=== PATIENT | female | born 1980 | race African-American/Black ===

== ENCOUNTER 2020-11-30 16:25 | Inpatient (IN) | payer MEDICAID, OTHER ==
[~2020-11-30] VITALS: Ht 165.1 cm; Wt 74.8 kg
[2020-11-30] MEDS ORDERED: ACETAMINOPHEN 325MG TABLET PO STA (17:15)
[2020-11-30] MEDS ORDERED: VISCOUS LIDOCAINE 2% 15 ML UDC PO STA (17:15)
[2020-11-30] MEDS ORDERED: MAGNESIUM/ALUMINUM HYDROXIDE/SIMETHICONE 30ML UDC PO STA (17:15)
[2020-11-30] MEDS ORDERED: SODIUM CHLORIDE 0.9% 1,000 ML IV ONE (17:15)
[2020-11-30 18:02] LABS: HEMATOCRIT. 39.6 % (36.0-48.0); HEMOGLOBIN. 13.1 g/dL (12.0-16.0); MEAN CORPUSCULAR HEMOGLOBIN 29.1 pg (28.0-32.0); MEAN PLATELET VOLUME 8.8 fl (7.4-10.4); PLATELET 343 x1000/uL (130-400); RED CELL DISTRIBUTION WIDTH 14.3 % (11.6-14.6)
[2020-11-30 18:07] LABS: CHLORIDE 103 mEq/L (98-107)
[2020-11-30 18:12] LABS: ETHANOL BLOOD < 10 mg/dL
[2020-11-30 18:18] LABS: PLATELET ESTIMATE NORMAL
[2020-11-30 18:38] LABS: CLARITY URINE CLOUDY (CLEAR); KETONES URINE 2+ (NEGATIVE); LEUKOCYTE ESTERASE URINE NEGATIVE (NEGATIVE); NITRITE URINE NEGATIVE (NEGATIVE); OCCULT BLOOD URINE 1+ (NEGATIVE); PROTEIN URINE 2+ (NEGATIVE); SPECIFIC GRAVITY URINE 1.027 (1.005-1.030); UROBILINOGEN URINE 0.2 E.U./dL (0.2-1.0)
[2020-11-30 18:41] LABS: COLOR URINE DARK YELLOW (YELLOW)
[2020-11-30] MEDS ORDERED: METOCLOPRAMIDE HCL 10MG/2ML VIAL IV ONE (19:30)
[2020-11-30] MEDS ORDERED: ONDANSETRON HCL 4MG/2ML INJ IV ONE (19:30)
[2020-11-30] MEDS ORDERED: SODIUM CHLORIDE 0.9% 1000ML BAG (SEPSIS BOLUS) IV ONE (22:00)
[2020-12-01] MEDS ORDERED: IOHEXOL-300 100 ML BOTTLE ONE (00:48)
[2020-12-01] MEDS ORDERED: ACETAMINOPHEN 325MG TABLET PO PRN (01:00)
[2020-12-01] MEDS ORDERED: METOCLOPRAMIDE HCL 10MG/2ML VIAL IV PRN (01:00)
[2020-12-01] MEDS ORDERED: DOCUSATE SODIUM 100MG CAPSULE PO PRN (01:00)
[2020-12-01] MEDS ORDERED: DIPHENHYDRAMINE 50MG/ML VIAL IV PRN (01:00)
[2020-12-01] MEDS ORDERED: ONDANSETRON HCL 4MG/2ML INJ IV PRN (01:00)
[2020-12-01] MEDS ORDERED: GUAIFENESIN 200MG/10ML SUGAR FREE UDC PO PRN (01:00)
[2020-12-01] MEDS ORDERED: MORPHINE SULFATE 2 MG/ML CPJ (NOT FOR IM USE) IV PRN (01:00)
[2020-12-01] MEDS ORDERED: MAGNESIUM/ALUMINUM HYDROXIDE/SIMETHICONE 30ML UDC PO PRN (01:00)
[2020-12-01] MEDS ORDERED: LORAZEPAM 2MG/ML CPJ IV PRN (01:00)
[2020-12-01] MEDS ORDERED: CLONIDINE 0.1MG TABLET PO PRN (01:00)
[2020-12-01] MEDS ORDERED: DEXT 5%/0.45% NACL 1000ML 1,000 ML IV SCH (01:30)
[2020-12-01] MEDS ORDERED: IPRATROPIUM/ALBUTEROL 0.5-3(2.5)MG/3ML NEB HHN SCH (06:00)
[2020-12-01 08:00] VITALS: BP 143/66
[2020-12-01 10:07] VITALS: BP 139/61
[2020-12-01 10:57] LABS: BASOPHILS % 0.4 % (0.0-2.0); CHLORIDE 114 mEq/L (98-107); EOSINOPHILS % 0.2 % (0.0-5.0); HEMATOCRIT. 35.2 % (36.0-48.0); HEMOGLOBIN. 11.6 g/dL (12.0-16.0); LYMPHOCYTES % 14.6 % (20.0-50.0); MEAN CORPUSCULAR HEMOGLOBIN 29.4 pg (28.0-32.0); MEAN CORPUSCULAR VOLUME 89.5 fL (81.0-99.0); MEAN PLATELET VOLUME 8.6 fl (7.4-10.4); NEUTROPHILS % 78.8 % (40.0-76.0); PLATELET 260 x1000/uL (130-400); RED BLOOD CELL COUNT 3.94 mill/uL (4.2-5.4); RED CELL DISTRIBUTION WIDTH 14.6 % (11.6-14.6)
[2020-12-01 12:00] VITALS: BP 114/64
[2020-12-01] MEDS ORDERED: ASPI-986 PO (13:20)
[2020-12-01] MEDS ORDERED: VALS1TAB75 MT (13:20)
[2020-12-01] MEDS ORDERED: LOPHC2 PO (13:20)
[2020-12-01 14:35] VITALS: BP 109/53
[2020-12-01 15:44] VITALS: BP 139/61
== END 2020-12-01 15:55 | disposition home or self-care (01) | DRG 392 ==
LOC: ER 16:25 → 6WST 12-01 02:49 → ENRESERV 12-01 07:21
PROVIDERS: ADMIT Family Medicine Adult Medicine; ATTEND Family Medicine Adult Medicine
DX: K52.9 Noninfective gastroenteritis and colitis, unspecified (principal); E87.1 Hypo-osmolality and hyponatremia; F17.200 Nicotine dependence, unspecified, uncomplicated; F12.90 Cannabis use, unspecified, uncomplicated
CPT/HCPCS: 36415; 74177; 80048; 80053; 80320; 81003; 85025; 93005; 99285; J2405; J2765; J7030; Q9967; G0480